=== PATIENT | female | born 1990 | race Caucasian/White ===

== ENCOUNTER 2022-10-25 14:16 | Outpatient (CLI) | payer BC | END 2022-10-25 14:17 | disposition home or self-care (01) | LOC: CSHMAMMO 14:16 | PROVIDERS: ATTEND Family Medicine | DX: N63.10 Unspecified lump in the right breast, unspecified quadrant (principal); N63.20 Unspecified lump in the left breast, unspecified quadrant | CPT/HCPCS: 77066; G0279 ==